=== PATIENT | male | born 1950 | race Caucasian/White ===

== ENCOUNTER 2017-04-11 01:36 | Inpatient (IN) ==
[2017-04-04 10:44] LABS: MANUAL DIFF NEEDED? NO; URINE MICRO REVIEW NEEDED? NO; URINE SOURCE CLEAN CATCH
[2017-04-04 10:51] LABS: BILIRUBIN URINE NEGATIVE (NEGATIVE); BLOOD URINE NEGATIVE (NEGATIVE); COLOR YELLOW; GLUCOSE URINE NEGATIVE (NEGATIVE); LEUKOCYTES URINE NEGATIVE (NEGATIVE); NITRITE URINE NEGATIVE (NEGATIVE); PROTEIN URINE TRACE mg/dL (NEGATIVE); SP GRAVITY URINE 1.021; TURBIDITY URINE CLEAR (CLEAR); UROBILINOGEN URINE 4 mg/dL (NORMAL)
[2017-04-04 10:53] LABS: UR EPITHELIAL CELLS <10 /HPF (<10); URINE BACTERIA NEGATIVE /HPF; URINE RBC <10 /HPF (<10); URINE WBC <10 /HPF (<10)
[2017-04-04 10:54] LABS: BASO% 0.6 % (0.0-0.8); EOS% 3.9 % (0.0-10.0); HEMATOCRIT 45.6 % (42.0-52.0); HEMOGLOBIN 15.4 g/dL (14.0-18.0); IMM GRAN# 0.03 X1000 (0.0-0.04); IMM GRAN% 0.6 % (0.0-0.5); LYMPH# 1.64 X1000 (1.2-3.4); LYMPH% 31.8 % (20.5-51.1); MCH 30.3 PG (27-31); MCHC 33.8 g/dL (33-37); MCV 89.6 FL (81-99); MONO# 0.56 X1000 (0.11-0.59); MONO% 10.9 % (1.7-9.3); NEUT% 52.2 % (42.2-75.2); PLT 162 X1000 (130-400); RBC 5.09 XMIL (4.7-6.1)
[2017-04-04 11:02] LABS: INR 0.98; PROTIME 10.3 Seconds (9.2-11.7); PTT 27.1 Seconds (22.0-36.0)
[2017-04-04 11:52] LABS: AGAP 11; BUN 17 mg/dL (8-22); CALCIUM 8.9 mg/dL (8.8-10.2); CHLORIDE 100 mmol/L (98-107); COSMO 279; POTASSIUM 4.2 mmol/L (3.5-5.1); SODIUM 139 mmol/L (136-145); TCO2 28 mmol/L (25-35)
[2017-04-11] MEDS ORDERED: LYRICA ONE (05:57)
[2017-04-11] MEDS ORDERED: COLACE ONE (05:57)
[2017-04-11] MEDS ORDERED: PEPCID ONE (05:57)
[2017-04-11] MEDS ORDERED: REGLAN ONE (05:57)
[2017-04-11] MEDS ORDERED: LR 1,000 ML ONE (05:58)
[2017-04-11] MEDS ORDERED: KEFZOL 2 GM/D5W 2 GM/50 ML IVPB ONE (05:58)
[2017-04-11] MEDS ORDERED: CELEBREX ONE (05:58)
[2017-04-11] MEDS ORDERED: DIPRIVAN 1% 1,000 MG/100 ML BOTTLE ONE (06:28)
[2017-04-11] MEDS ORDERED: VERSED ONE (06:31)
[2017-04-11] MEDS ORDERED: FENTANYL ONE (06:31)
[2017-04-11] MEDS ORDERED: TORADOL ONE (06:38)
[2017-04-11] MEDS ORDERED: VANCOMYCIN ONE (06:38)
[2017-04-11] MEDS ORDERED: DURAMORPH ONE (06:38)
[2017-04-11] MEDS ORDERED: MARCAINE 0.25% PF ONE (06:38)
[2017-04-11] MEDS ORDERED: CYKLOKAPRON 1,000 MG/NS 1,000 MG/100 ML IVPB ONE ×2 (06:38→06:39)
[2017-04-11] MEDS ORDERED: SODIUM CHLORIDE 0.9% ONE (06:38)
[2017-04-11] MEDS ORDERED: NEOSPORIN G.U. IRRIGANT ONE (06:39)
[2017-04-11] MEDS ORDERED: EXPAREL 1.3% ONE (06:39)
[2017-04-11] MEDS ORDERED: ZOFRAN ONE (07:25)
[2017-04-11] MEDS ORDERED: DECADRON ONE (07:25)
[2017-04-11] MEDS ORDERED: OFIRMEV 1000 MG/ISOTONIC SOLN 1,000 MG/100 ML BOTTLE ONE (07:25)
[2017-04-11] MEDS ORDERED: EPHEDRINE ONE (07:50)
[2017-04-11 07:57] LABS: URINE MICRO REVIEW NEEDED? NO; URINE SOURCE CATH
[2017-04-11 08:03] LABS: BILIRUBIN URINE NEGATIVE (NEGATIVE); BLOOD URINE NEGATIVE (NEGATIVE); COLOR YELLOW; GLUCOSE URINE NEGATIVE (NEGATIVE); LEUKOCYTES URINE NEGATIVE (NEGATIVE); NITRITE URINE NEGATIVE (NEGATIVE); PROTEIN URINE NEGATIVE (NEGATIVE); SP GRAVITY URINE 1.024; TURBIDITY URINE CLEAR (CLEAR); UROBILINOGEN URINE NORMAL (NORMAL)
[2017-04-11 08:04] LABS: UR EPITHELIAL CELLS <10 /HPF (<10); URINE BACTERIA NEGATIVE /HPF; URINE RBC <10 /HPF (<10); URINE WBC <10 /HPF (<10)
[2017-04-11] MEDS ORDERED: DIPRIVAN 1% ONE (08:34)
[2017-04-11] MEDS ORDERED: ZYLOPRIM PO SCH ×2 (09:00→21:00)
[2017-04-11] MEDS ORDERED: FLOMAX PO SCH ×2 (09:00→21:00)
[2017-04-11] MEDS ORDERED: NS 1,000 ML ONE (09:13)
--- NOTE | 2017-04-11 10:02 | Diag Imaging Result Doc PS360 ---
KNEE 1-2 VIEWS-LEFT - 04/11/2017 INDICATION: left TKA TECHNIQUE: Two views COMPARISON: None FINDINGS: There has been left total knee arthroplasty. Alignment is anatomic. No hardware fracture or loosening. IMPRESSION: No evidence of complication. Electronically signed by Jamil Ying 04/11/2017 10:00 AM
[2017-04-11] MEDS ORDERED: MORPHINE IV PRN (10:10)
[2017-04-11] MEDS ORDERED: MILK OF MAGNESIA PO PRN (10:15)
[2017-04-11] MEDS ORDERED: ZOFRAN IV PRN (10:15)
[2017-04-11] MEDS: NS 1,000 ML IV SCH ×2 (13:32→20:28)
[2017-04-11] MEDS: TYLENOL PO SCH ×2 (13:56→20:29)
[2017-04-11] MEDS: KEFZOL 2 GM/D5W 2 GM/50 ML IVPB IV SCH ×2 (14:05→23:38)
[2017-04-11] MEDS: OXY IR PO PRN ×3 (14:17→20:29)
[2017-04-11] MEDS: COLACE PO SCH (20:30)
[2017-04-11] MEDS ORDERED: NEURONTIN PO SCH (21:00)
[2017-04-11] MEDS ORDERED: ZANAFLEX PO SCH (21:00)
[2017-04-11] MEDS ORDERED: BENADRYL PO PRN (23:54)
[2017-04-12] MEDS ORDERED: BENADRYL PO PRN (00:12)
[2017-04-12] MEDS: OXY IR PO PRN ×3 (00:24→09:44)
[2017-04-12] MEDS: NS 1,000 ML IV SCH (04:17)
[2017-04-12] MEDS: TYLENOL PO SCH (05:18)
[2017-04-12] MEDS ORDERED: XARELTO PO SCH (06:00)
[2017-04-12 06:57] LABS: HEMATOCRIT 37.4 % (42.0-52.0); HEMOGLOBIN 12.3 g/dL (14.0-18.0)
[2017-04-12 07:10] LABS: AGAP 13; BUN 19 mg/dL (8-22); CALCIUM 8.6 mg/dL (8.8-10.2); CHLORIDE 102 mmol/L (98-107); COSMO 283; POTASSIUM 4.7 mmol/L (3.5-5.1); SODIUM 139 mmol/L (136-145); TCO2 24 mmol/L (25-35)
[2017-04-12] MEDS: COLACE PO SCH (08:01)
[2017-04-12] MEDS ORDERED: PERIDEX MT SCH (09:00)
[2017-04-12] MEDS ORDERED: PEPCID PO SCH (09:00)
[2017-04-12 11:19] VITALS: BP 105/65
== END 2017-04-12 11:32 | disposition home health service (06) ==
LOC: SURHOLD 01:36 → 4N 07:33
PROVIDERS: ADMIT Orthopaedic Surgery Adult Reconstructive Orthopaedic Surgery; ATTEND Orthopaedic Surgery Adult Reconstructive Orthopaedic Surgery